=== PATIENT | female | born 1980 | race Caucasian/White ===

== ENCOUNTER 2023-01-08 15:39 | Outpatient (CLI) | payer OTHER, SELFPAY ==
--- NOTE | ~2023-01-08 | MM_ITS ---
EXAMINATION: MM screening denny BI w cecil HISTORY: Screening TECHNIQUE: Craniocaudal and mediolateral oblique 3-D tomosynthesis images were obtained and synthetic 2-D images were generated. CAD analysis was submitted and interpreted. COMPARISON: No prior mammogram is available for comparison at this institution. BREAST PARENCHYMAL COMPOSITION: The breasts are extremely dense, which lowers the sensitivity of mamm ography FINDINGS: There is no evidence of suspicious mass, calcification, or architectural distortion to sugg est malignancy in either breast. There has been no suspicious interval change. IMPRESSION: 1. No mammographic evidence of malignancy. 2. Recommend routine screening mammography in one year. BI-RADS Category 1: Negative Reviewed, dictated and finalized at location A.
== END 2023-01-08 15:40 | disposition home or self-care (01) ==
LOC: ANHIMG 15:40
PROVIDERS: PCP Family Medicine; Visit Provider Family Medicine
DX: Z12.31 Encounter for screening mammogram for malignant neoplasm of breast (principal)
CPT/HCPCS: 77063; 77067

== ENCOUNTER 2023-11-19 06:15 | Emergency (ER) | payer OTHER, SELFPAY ==
--- NOTE | ~2023-11-19 | CT_ITS ---
Non-contrast CT scan of the Abdomen and Pelvis Clinical indication: Right flank pain Technique: 2.5 mm axial scans were obtained through the abdomen and pelvis without intravenous or or al contrast. Dose reduction technique was used on this scan by utilizing automated exposure control a nd iterative reconstruction technique. The dose-length product (DLP) was 173.33 mGy-cm. Findings: Images through the lung bases reveal no abnormalities. Suspected 3 mm right UVJ stone, with mild right hydroureteronephrosis and right perinephric fluid. 2 mm nonobstructing left renal stone present. No left ureteral stone or left hydronephrosis evident. The liver, spleen, pancreas, gallbladder, and adrenals appear normal. There is no aortic aneurysm. There is no evidence of bowel obstruction. Images through the pelvis were performed. There is trace free fluid in the pelvis. Urinary bladder ot herwise unremarkable. No definite adnexal mass seen. Impression: Suspected 3 mm right UVJ stone, with mild right hydronephrosis and right perinephric fluid. 2 mm nonobstructing left renal stone. Reviewed, dictated and finalized at location M. WEAVER Impression: Suspected 3 mm right UVJ stone, with mild right hydronephrosis and right perine phric fluid. 2 mm nonobstructing left renal stone.
[2023-11-19 06:18] VITALS: BP 129/56; PULSE 65; RESP 20; TEMP 36.8; O2SAT 100
[2023-11-19 06:54] LABS: Alanine Aminotransferase 22 U/L (6-35); Albumin Level 4.4 g/dL (3.5-5.1); Alkaline Phosphatase 70 U/L (38-126); Anion Gap 11 mmol/L (8-16); Aspartate Amino Transferase 32 U/L (14-36); Bilirubin,Total 0.5 mg/dL (0.2-1.3); Blood Urea Nitrogen 18 mg/dL (7-17); Calcium 9.1 mg/dL (8.4-10.2); Carbon Dioxide 23 mmol/L (22-30); Chloride 103 mmol/L (98-107); Estimated CRCL calculation 58 ml/min; Estimated Glomerular Filt Rate > 60; Glucose 153 mg/dL (65-110); Potassium 3.5 mmol/L (3.4-5.0); Sodium 137 mmol/L (137-145)
[2023-11-19 07:10] LABS: Appearance Urine Turbid (Clear); Bacteria Urine None Seen /hpf; Bilirubin Urine Negative (Negative); Blood Urine 2+ (Negative); Color Urine Yellow (Yellow); Glucose Urine UA Negative (Negative); Ketones Urine 1+ mg/dL (Negative); Leukocyte Esterase Ur Negative LEU/UL (Negative); Nitrate Urine Negative (Negative); Non Pathogenic Casts 0-2; Protein Urine Negative (Negative); RBC Urine 0-2 /hpf (0-2); Specific Grav Ur 1.016 (1.001-1.035); Squamous Epithelial Cell Urine Few /hpf (Few); Urobilinogen Urine 0.2 mg/dL (<2.0); pH Urine 7.5 (5.0-9.0)
[2023-11-19 07:29] LABS: Add Urine Microscopic? YES
[2023-11-19 07:30] LABS: Basophils Absolute Auto 0.1 K/mm3 (0.0-0.1); Basophils Percent Auto 0.9 % (0.2-1.2); Eosinophils Absolute Auto 0.1 K/mm3 (0-0.3); Eosinophils Percent Auto 0.9 % (0-4.4); Hematocrit 37.5 % (37.0-47.0); Hemoglobin 12.4 g/dL (12.0-15.0); Immature Granulocyte Absolute 0.01 K/mm3 (0.00-0.031); Immature Granulocyte Percent A 0.1 % (0-0.5); Lymphocytes Absolute Auto 1.82 K/mm3 (0.9-3.2); Lymphocytes Percent Auto 24.3 % (18.3-44.2); Mean Corpuscular HGB Conc 33.1 g/dl (32-36); Mean Corpuscular Hemoglobin 32.3 pg (26-34); Mean Corpuscular Volume 97.7 fl (80-100); Mean Platelet Volume 8.7 fl (7.4-10.4); Monocytes Absolute Auto 0.6 K/mm3 (0.1-0.6); Monocytes Percent Auto 8.4 % (2.6-8.5); Neutrophils Absolute Auto 4.9 K/mm3 (1.3-6.7); Neutrophils Percent Auto 65.4 % (45.5-73.1); Platelet Count Result 245 k/mm3 (150-375); Red Blood Count 3.84 M/mm3 (4.2-5.4); Red Cell Distribution Width 11.3 % (11.5-14.5); White Blood Count 7.5 K/mm3 (4.5-10.0)
[2023-11-19] MEDS: KETOROLAC 30 MG/ML VIAL (*BKC) IV PUSH (08:18)
[2023-11-19 08:52] VITALS: BP 103/58; PULSE 71; RESP 18; O2SAT 100
--- NOTE | 2023-11-19 09:25 | ED.GENADULT ---
HPI - General Adult General Chief complaint: Urogenital-Female Stated complaint: abd pain Time Seen by Provider: 11/19/23 07:00 Related Data Home Medications Medication Instructions Recorded Confirmed diphenhydramine HCl 25 mg capsule 25 mg PO TID PRN 06/04/22 06/08/23 (Benadryl) [id number]-Sz-[id number]-minerals 18 tablet PO 06/04/22 06/08/23 mg-0.4 mg tablet Allergies Allergy/AdvReac Type Severity Reaction Status Date / Time No Known Allergies Allergy Unverified 06/08/23 13:48 [facility] Family History Family History (Updated 06/04/22 @ 12:49 by Kristin Yarbrough ORT) Other Brain cancer Breast cancer Lung cancer Social History Social History (Updated 06/08/23 @ 14:13 by Jennyfer Byers) Social History: Caffeine- daily Smoking status: Never smoker Alcohol intake: never Substance use: never Substance use type: does not use Lack of Transportation: No Lack of Food: Never True Current Housing: I Have Housing Concerned About Future Housing: No Difficulty Paying Gas/Electric Bills: No Difficulty Paying for Meds: No Currently Unemployed: No Education: Bachelor's Degree Difficulty w/ Childcare or Family Care: No Living arrangements: alone Occupation/Education: occupation Additional occupation/education comments: [employer] Gender identity (if verbalized by the patient): Female Spiritual care concerns: No Agree to blood products: Yes Course Course Emergency Course: -Course: Toradol morphine for pain. Resting comfortably. Co-morbidities complicating care: None -Social determinants of health: none -External Chart Review: none -Hx from independent Sources: patient -Independent interpretation of studies: 3 mm UVJ stone. Urinalysis without infection. Normal renal function. -Interventions: Toradol/ morphine /CT scan. -Shared decision making / Disposition: Discharge home with supportive medications. Discussed aggressive hydration. Vital Signs Vital signs: Vital Signs Temperature 98.2 F 11/19/23 06:18 Pulse Rate 65 11/19/23 06:18 Respiratory Rate 20 11/19/23 06:18 Blood Pressure 129/56 L 11/19/23 06:18 Pulse Oximetry 100 11/19/23 06:18 Oxygen Delivery Room Air 11/19/23 06:18 Temperature 98.2 F 11/19/23 06:18 Pulse Rate 71 11/19/23 08:52 Respiratory Rate 18 11/19/23 08:52 Blood Pressure 103/58 L 11/19/23 08:52 Pulse Oximetry 100 11/19/23 08:52 Oxygen Delivery Room Air 11/19/23 06:18 Medical Decision Making Vital Signs Vital Signs: Vital Signs Temperature 98.2 F 11/19/23 06:18 Pulse Rate 65 11/19/23 06:18 Respiratory Rate 20 11/19/23 06:18 Blood Pressure 129/56 L 11/19/23 06:18 Pulse Oximetry 100 11/19/23 06:18 Oxygen Delivery Room Air 11/19/23 06:18 Temperature 98.2 F 11/19/23 06:18 Pulse Rate 71 11/19/23 08:52 Respiratory Rate 18 11/19/23 08:52 Blood Pressure 103/58 L 11/19/23 08:52 Pulse Oximetry 100 11/19/23 08:52 Oxygen Delivery Room Air 11/19/23 06:18 Lab Data 11/19/23 06:33 11/19/23 06:33 Labs: Lab Results 11/19/23 11/19/23 Range/Units 06:33 06:49 WBC 7.5 (4.5-10.0) K/mm3 RBC 3.84 L (4.2-5.4) M/mm3 Hgb 12.4 (12.0-15.0) g/dL Hct 37.5 (37.0-47.0) % MCV 97.7 (80-100) fl MCH 32.3 (26-34) pg MCHC 33.1 (32-36) g/dl RDW 11.3 L (11.5-14.5) % Plt Count 245 (150-375) k/mm3 MPV 8.7 (7.4-10.4) fl Immature Gran % (Auto) 0.1 (0-0.5) % Neut % (Auto) 65.4 (45.5-73.1) % Lymph % (Auto) 24.3 (18.3-44.2) % [place] % (Auto) 8.4 (2.6-8.5) % Eos % (Auto) 0.9 (0-4.4) % Baso % (Auto) 0.9 (0.2-1.2) % Lymph # (Auto) 1.82 (0.9-3.2) K/mm3 [place] # (Auto) 0.6 (0.1-0.6) K/mm3 Eos # (Auto) 0.1 (0-0.3) K/mm3 Baso # (Auto) 0.1 (0.0-0.1) K/mm3 Abs Immat Gran (auto) 0.01 (0.00-0.031) K/mm3 Absolute Neuts (auto) 4.9 (1.3-6.7) K/mm3 Abso
== END 2023-11-19 10:00 | disposition home or self-care (01) ==
PROVIDERS: Student in an Organized Health Care Education/Training Program; Emergency Provider Emergency Medicine; PCP Family Medicine
DX: N13.2 Hydronephrosis with renal and ureteral calculous obstruction (principal)
CPT/HCPCS: 36415; 74176; 80053; 81001; 81025; 85025; 87086; 99284; J1885

== ENCOUNTER → 2023-12-03 13:44 | Outpatient (CLI) | payer OTHER, SELFPAY ==
--- NOTE | ~2023-12-03 | US_ITS ---
Renal-Bladder ultrasound Clinical History: Hydronephrosis Technique: Real-time sonographic imaging of the kidneys and urinary bladder was performed. Findings: The right kidney measures 10.3 cm in length and the left kidney measures 10.2 cm. There is no hydronephrosis or renal calculus identified. Minimal fullness of the bilateral renal pelves noted. Renal cortical echogenicity is within normal limits. No renal mass lesion is identified. The urinary bladder is moderately distended at the time of this exam. No intraluminal echoes are iden tified. No abnormal wall thickening is seen. Impression: No tammi hydronephrosis. Minimal fullness of the bilateral renal pelves. Possible extra renal pelves. Reviewed, dictated and finalized at location M. ER NET Impression: No tammi hydronephrosis. Minimal fullness of the bilateral renal pelves. Possib le extra renal pelves.
== END ==
PROVIDERS: PCP Family Medicine; Visit Provider Physician Assistant
DX: N13.2 Hydronephrosis with renal and ureteral calculous obstruction (principal)
CPT/HCPCS: 76775

== ENCOUNTER 2024-01-13 16:13 | Outpatient (CLI) | payer OTHER, SELFPAY ==
--- NOTE | ~2024-01-13 | MM_ITS ---
EXAMINATION: MM screening denny BI w cecil HISTORY: Screening TECHNIQUE: Craniocaudal and mediolateral oblique 3-D tomosynthesis images were obtained and synthetic 2-D images were generated. CAD analysis was submitted and interpreted. COMPARISON: 01/08/2023 BREAST PARENCHYMAL COMPOSITION: Dense: The breasts are extremely dense, which lowers the sensitivity of mammography. FINDINGS: There is no evidence of suspicious mass, calcification, or architectural distortion to sugg est malignancy in either breast. There has been no suspicious interval change. IMPRESSION: 1. No mammographic evidence of malignancy. 2. Recommend routine screening mammography in one year. BI-RADS Category 1: Negative Reviewed, dictated and finalized at location A.
== END 2024-01-13 16:14 | disposition home or self-care (01) ==
PROVIDERS: PCP Family Medicine; Visit Provider Nurse Practitioner Family
DX: Z12.31 Encounter for screening mammogram for malignant neoplasm of breast (principal)
CPT/HCPCS: 77063; 77067

== ENCOUNTER 2025-02-22 15:47 | Outpatient (CLI) | payer OTHER, SELFPAY ==
--- NOTE | ~2025-02-22 | MM_ITS ---
EXAMINATION: MM screening denny BI w cecil HISTORY: Screening TECHNIQUE: Craniocaudal and mediolateral oblique 3-D tomosynthesis images were obtained and synthetic 2-D images were generated. CAD analysis was submitted and interpreted. COMPARISON: Comparison to multiple prior studies sequentially, with oldest reviewed study dated 04/2023. BREAST PARENCHYMAL COMPOSITION: Dense: The breasts are extremely dense, which lowers the sensitivity of mammography. FINDINGS: There is no evidence of suspicious mass, calcification, or architectural distortion to sugg est malignancy in either breast. There has been no suspicious interval change. IMPRESSION: 1. No mammographic evidence of malignancy. 2. Recommend routine screening mammography in one year. BI-RADS Category 1: Negative Reviewed, dictated and finalized at location B.
--- OUTSIDE RECORDS SUMMARY | 2025-02-22 16:17 | XMS_ITS | Referral Summary ---
Author Organization [facility] Address [address] [place] [address] Care Team Providers Care Netbackup Admin Name Role Phone Sarahi Berger MD Primary Care Provider + Encounters Date Type Department Care Team Description 12/04/2024 10:57 AM HEEL COMPRESSOR - 12/04/2024 11:59 PM HEEL COMPRESSOR Hospital Encounter [facility] ([facility]) [address] [place] [address] Hydronephrosis with renal and ureteral calculus obstruction Discharge Disposition: Discharge to home or self care 12/04/2024 1:20 PM HEEL COMPRESSOR [facility] ([facility]) - [facility] Urology [address] [place] [address] Advanced Medicine [address] [place] [address] [place] [id number] Sarah Holly NP Hydronephrosis with renal and ureteral calculus obstruction (Primary Dx) from Last 3 Months Allergies No known active allergies Medications No known medications Active Problems No known active problems Social History Tobacco Use Types Packs/Day Years Used Date Smoking Tobacco: Never Tobacco Cessation:Counseling Given: Not Answered AUDIT-C Answer Date Recorded Q1: How often do you have a drink containing alc ohol? Never 12/10/2023 Average Number of Drinks Not on file 024 Frequency of Binge Drinking Not on file 05/2024 Comments Unknown Sex and Gender Information Value Date Recorded Sex Assigned at Not on file Legal Sex Female 11:36 AM HEEL COMPRESSOR Gender Identity Not on file Sexual Orientation Not on file Plan of Treatment Not on file Procedures Procedure Name Priority Date/Time Associated Diagnosis Comments POCT URINALYSIS DIPSTICK Routine 12/04/2024 1:20 PM HEEL COMPRESSOR Hydronephrosis with renal and ureteral calculus obstruction US KIDNEY COMPLETE Schedule Routine, Read Routine (OP Routine) 12/04/2024 11:45 AM HEEL COMPRESSOR Hydronephrosis with renal and ureteral calculus obstruction from Last 3 Months Results * (ABNORMAL) POCT urinalysis dipstick (12/04/2024 1:20 PM HEEL COMPRESSOR) Color, Urine, POC Yellow Clarity, ur, POC Clear Clear Glucose, ur, POC Negative Negative MG/DL Ketones, ur, POC Negative Negative Blood, ur, POC 2+(A) Negative pH, ur, POC 5.0 5.0 - 8.0 Protein, ur, POC Trace(A) Negative Nitrite, ur, POC Negative Negative Leukocytes, ur, POC 1+(A) Negative Lot Number 0 Urine 12/04/2024 1:20 PM HEEL COMPRESSOR Sarah Holly TAXI DRIVER SUPERVISOR POINT OF CARE TEST [facility] Final Result * US Kidney Complete (12/04/2024 11:45 AM HEEL COMPRESSOR) Anatomical Region Laterality Modality Kidney N/A Ultrasound 12/04/2024 11:5 0 AM HEEL COMPRESSOR Impressions 12/04/2024 11:53 AM HEEL COMPRESSOR Two foci of twinkle artifact with associated echogenicity in the left renal midpole without shadowing, which may represent nonobstructive nephrolithiasis. Dictated by: Sarahi Riggs MD, PhD. The radiology attending physician has personally reviewed this study, and had reviewed and/or edited this written report and agrees with it. Electronically signed by: Peggy Blanco M.D. Narrative 12/04/2024 11:53 AM HEEL COMPRESSOR EXAMINATION: COMPLETE RENAL SONOGRAM HISTORY: 44-year-old female with history of left nephrolithiasis. COMPARISON: None FINDINGS: Kidneys: The echogenicity of both kidneys is normal. The kidneys are normal in size. The right kidney measures 11.3 cm in length, and the left, 11.3 cm in length. There is no hydronephrosis in either kidney. There are two foci of twinkle artifact within the left renal midpole with associated echogenicity but without posterior acoustic shadowing, which may represent nonobstructive nephrolithiasis. Bladder: The urinary bladder is normal. Bilateral ureteral jets are noted. Procedure Note Peggy Blanco MD - 12/04/2024 EXAMINATION: COMPLETE RENAL SONOGRAM HISTORY: 44-year-old female with history of left nephrolithiasis. COMPARISON: None FINDINGS: Kidneys: The echogenicity of both kidneys is normal. The kidneys are normal in size. The right kidney measures 11.3 cm in length, and the left, 11.3 cm in length. There is no hydronephrosis in either kidney. There are two foci of twinkle artifact within the left renal midpole with associated echogenicity but without posterior acoustic shadowing, which may represent nonobstructive nephrolithiasis. Bladder: The urinary bladder is normal. Bilateral ureteral jets are noted. IMPRESSION: Two foci of twinkle artifact with associated echogenicity in the left renal midpole without shadowing, which may represent nonobstructive nephrolithiasis. Dictated by: Sarahi Riggs MD, PhD. The radiology attending physician has personally reviewed this study, and had reviewed and/or edited this written report and agrees with it. Electronically signed by: Peggy Blanco M.D. Rafael Randle MD [facility] PROCEDURES F inal Result from Last 3 Months Insurance [facility] [employer] Care Teams Netbackup Admin Relationship Specialty Start Date End Date Sarahi Berger MD PCP - General Family Medicine 12/08/23
--- OUTSIDE RECORDS SUMMARY | 2025-02-22 16:17 | XMS_ITS | Clinical Summary ---
Author Organization [facility] Address [address] [place] [address] Care Team Providers Care Sap Security Consultant Name Role Phone Sarahi Berger MD Primary Care Provider + Allergies No known active allergies Medications No known medications Active Problems No known active problems Encounters Date Type Department Care Team Description 12/04/2024 1:20 PM DRAPERY AND UPHOLSTERY MEASURER Office Visit [facility] ([facility]) - [facility] U[facility] [address] [facility] Advanced Medicine [address]th [place] [address] [place] [address] Sarah Holly NP Hydronephrosis with renal and ureteral calculus obstruction (Primary Dx) 12/04/2024 10:57 AM DRAPERY AND UPHOLSTERY MEASURER - 12/04/2024 11:59 PM DRAPERY AND UPHOLSTERY MEASURER Hospital Encounter [facility] ([facility]) [address] [place] [address] Hydronephrosis with renal and ureteral calculus obstruction Discharge Disposition: Discharge to home or self care from Last 3 Months Surgical History Surgery Date Site/Laterality Comments SECTION Medical History Medical History Date Comments Nephrolithiasis Family History Medical History Relation Name Comments Urolithiasis Father Urolithiasis Mother Relation Name Status Comments Father Mother Social History Tobacco Use Types Packs/Day Years [...] on file Legal Sex Female 11:36 AM DRAPERY AND UPHOLSTERY MEASURER Gender Identity Not on file Sexual Orientation Not on file Obstetrics History Plan of Treatment Health Maintenance Due Date Last Done Comments Breast Cancer Screening-Mammogram 1980 Cervical Cancer Screening 1980 Depression Screening 1980 Hepatitis C Screening 1980 DTaP/Tdap/Td Vaccine (1 - Tdap) 1991 Varicella Vaccines (1 of 2 - 13+ 2-dose series) 1993 Hepatitis B Screening 1998 Regular Well Visit/Exam 18-64 1998 Covid-19 Vaccine (3 - 2023-2 5 season) 2024 04/15/2021, 03/18/2021 Influenza Vaccine (Season Ended) 2025 07/23/2023, 08/09/2022, 07/19/2021 HPV Vaccines Aged Out No longer eligi ble based on patient's age to complete this topic Pneumococcal vaccine <65 Aged Out No longer eligible based on patient's age to complete this topic Procedures Procedure Name Priority Date/Time Associated Diagnosis Comments POCT URINALYSIS DIPSTICK Routine 12/04/2024 1:20 PM DRAPERY AND UPHOLSTERY MEASURER Hydronephrosis with renal and ureteral calculus obstruction KIDNEY COMPLETE Schedule Routine, Read Routine (OP Routine) 12/04/2024 11:45 AM DRAPERY AND UPHOLSTERY MEASURER Hydronephrosis with renal and ureteral calculus obstruction from Last 3 Months Results * (ABNORMAL) POCT urinalysis dipstick (12/04/2024 1:20 PM DRAPERY AND UPHOLSTERY MEASURER) Color, Urine, POC Yellow Clarity, ur, POC Clear Clear Glucose, ur, POC Negative Negative MG/DL Ketones, ur, POC Negative Negative Blood, ur, POC 2+(A) Negative pH, ur, POC 5.0 5.0 - 8.0 Protein, ur, POC Trace(A) Negative Nitrite, ur, POC Negative Negative Leukocytes, ur, POC 1+(A) Negative Lot Number 0 Urine 12/04/2024 1:20 PM DRAPERY AND UPHOLSTERY MEASURER Sarah Holly BUSH HOG OPERATOR POINT OF CARE TEST [facility] Final Result * US Kidney Complete (12/04/2024 11:45 AM DRAPERY AND UPHOLSTERY MEASURER) Anatomical Region Laterality Modality Kidney N/A Ultrasound 12/04/2024 11:5 0 AM DRAPERY AND UPHOLSTERY MEASURER Impressions 12/04/2024 11:53 AM DRAPERY AND UPHOLSTERY MEASURER Two foci of twinkle artifact with associated echogenicity in the left renal midpole without shadowing, which may represent nonobstructive nephrolithiasis. Dictated by: Sarahi Riggs MD, PhD. The radiology attending physician has personally reviewed this study, and had reviewed and/or edited this written report and agrees with it. Electronically signed by: Peggy Blanco M.D. Narrative 12/04/2024 11:53 AM DRAPERY AND UPHOLSTERY MEASURER EXAMINATION: COMPLETE RENAL SONOGRAM HISTORY: 44-year-old female [...] by: Peggy Blanco M.D. Rafael Randle MD IM US PROCEDURES F inal Result from Last 3 Months Insurance [employer] [place] [address] [employer] [place] [address] Care Teams Sap Security Consultant Relationship Specialty Start Date End Date Sarahi Berger MD PCP - General Family Medicine 12/08/23
== END 2025-02-22 15:48 | disposition home or self-care (01) ==
LOC: ANHIMG 16:14
PROVIDERS: PCP Family Medicine; Visit Provider Family Medicine
DX: Z12.31 Encounter for screening mammogram for malignant neoplasm of breast (principal)
CPT/HCPCS: 77063; 77067